=== PATIENT | female | born 1970 | race Caucasian/White ===

== ENCOUNTER 2017-04-02 00:34 | Emergency (ER) | payer OTHER | END 2017-04-02 03:10 | disposition home or self-care (01) | LOC: ER1 00:34 | DX: R10.31 Right lower quadrant pain (principal); R31.9 Hematuria, unspecified; E78.5 Hyperlipidemia, unspecified; F17.210 Nicotine dependence, cigarettes, uncomplicated; Z87.442 Personal history of urinary calculi; Z90.49 Acquired absence of other specified parts of digestive tract | CPT/HCPCS: 81001; 87086; 99284 ==

== ENCOUNTER 2021-02-14 15:54 | Emergency (ER) | payer BC ==
[2021-02-14 16:57] LABS: HEMOGLOBIN 15.1 gm/dl (12.3-15.3); RED BLOOD COUNT 4.49 M/UL (4.00-5.10); WHITE BLOOD COUNT 8.6 K/UL (4.5-11.0)
[2021-02-14 17:11] LABS: BUN/CREATININE RATIO 10 (0-10)
[2021-02-14] MEDS ORDERED: ZOFRAN ODT 4 MG4 MG GT (19:52)
[2021-02-14] MEDS ORDERED: TORADOL 10 MG T10 MG PO (19:52)
== END 2021-02-14 20:10 | disposition home or self-care (01) ==
LOC: ER1 15:54
DX: N20.0 Calculus of kidney (principal); E11.9 Type 2 diabetes mellitus without complications; I10 Essential (primary) hypertension
CPT/HCPCS: 80053; 81001; 83690; 84703; 85025; 96374; 96375; 99284; J1885; J2270; J2405; J7030; Q9967

== ENCOUNTER → 2021-12-02 | Outpatient (CLI) | payer BC ==
[~2021-12-02] MED LIST: TORADOL 10 MG T10 MG PO; ZOFRAN ODT 4 MG4 MG GT
== END ==
LOC: KOH-I 11:07
DX: M25.511 Pain in right shoulder (principal)
CPT/HCPCS: 73030

== ENCOUNTER → 2022-02-06 | Outpatient (CLI) | payer BC | LOC: KOH-I 12:28 | DX: M75.121 Complete rotator cuff tear or rupture of right shoulder, not specified as traumatic (principal) | CPT/HCPCS: 73221 ==